=== PATIENT | female | born 1965 | race Caucasian/White ===

== ENCOUNTER 2017-09-14 09:04 | Emergency (ER) | payer BC ==
[2017-09-14 09:08] VITALS: BP 155/72; BMI 31.7
--- NOTE | 2017-09-14 09:31 | ED.ABDFE ---
HPI - Time seen Time seen: 11:48 (seen on arrival) - PCP Primary Care Physician: JASMINE - Complaint Chief Complaint:: PT C/O RLQ PAIN THAT RADIATES TO THE BACK.PT STATES THE PAIN STARTED ALL OF A SUDDEN THIS AM UPON AWAKENING. PT STATES SHE IS HAVING A BURNING SENSATION WHEN SHE AT THE END OF COIDING. PT ALSO STATES SHE THOUGHT THAT SHE MAY HAVE BEEN RUNNING FEVER SHE TOOK X2 ADVIL. SHE DOES ALSO C/O THAT SHE HAS BEEN DIZZY. - Nurses notes reviewed Nurses Notes Review: Yes - Source History Provided: Patient - Mode of arrival Mode of Arrival: Ambulatory - Timing Onset of Chief Complaint: 09/14/17 PMH - PMH Past Medical History: No (pt states 'borderline DM') Past Surgical History: Yes Surgical History: Hysterectomy - Family History History of Family Medical Conditions: No - Social History Does any household member use tobacco: No Alcohol Use: None Do you use any recreational Drugs:: No Lives With: Family Lives Where: Home - infectious screening In the last 2 months have you had wt loss of >10#?: NO Have you had fever, night sweats or hemotysis?: No Have you traveled outside the country in the last 6 months?: No Isolation: Standard ROS - Review of Systems Constitutional: Chills, Diaphoresis Eyes: No Symptoms Reported ENTM: No Symptoms Reported Respiratoy: No Symptoms Reported Cardiovascular: No Symptoms Reported Gastrointestinal/Abdominal: Abdominal Pain, Diarrhea, Nausea Genitourinary: Pain Neurological: No Symptoms Reported Musculoskeletal: No Symptoms Reported Integumentary: No Symptoms Reported Hematologic/Lymphatic: No Symptoms Reported Endocrine: No Symptoms Reported Psychiatric: No Symptoms Reported All Other Systems: Reviewed and Negative PE - Vital Signs Vitals: Temperature 97.7 F Pulse Rate 88 Respiratory Rate 18 Blood Pressure 155/72 O2 Sat by Pulse Oximetry 99 - General Limitations: No Limitations General Appearance: Alert, In No Apparent Distress - Head Head Exam: Normal Inspection - Eyes Eye exam: Normal Appearance - ENT ENT Exam: Normal Exam - Neck Neck Exam: Normal Inspection - Chest Chest Inspection: Normal Inspection - Respiratory Respiratory Exam: Normal Lung Sounds Bilat Respiratory Exam: Bilateral Clear to Auscultation - Cardiovascular Cardiovascular Exam: Regular Rate, Normal Rhythm, Normal Heart Sounds - Abdominal Exam Abdominal Exam: Soft, Tenderness. negative: Guarding, Rebound, Rigidity, Dimnished Bowel Sounds Abdominal Tenderness: RLQ, Mild - Rectal Rectal Exam: Deferred - Back Back Exam: negative: (R) CVA Tenderness, (L) CVA Tenderness - Extremeties Extremities Exam: Normal Inspection, Full ROM - Neurologic Neurological Exam: Alert, Oriented X3 - Psychiatric Psychiatric Exam: Normal Affect, Normal Mood - Skin Skin Exam: Warm, Dry ROR - Labs Reviewed Laboratory Results Reviewed?: Yes (hematuria, nl WBC) Result Diagrams: 09/14/17 10:10 09/14/17 10:10 Laboratory: WBC 8.1 X10^3/uL (3.6-10.0) 09/14/17 10:10 RBC 4.67 X10^6/uL (3.5-5.4) 09/14/17 10:10 Hgb 13.4 g/dL (12.0-16.0) 09/14/17 10:10 Hct 39.8 % (36.0-47.0) 09/14/17 10:10 MCV 85.2 fL (80.0-100.0) 09/14/17 10:10 MCH 28.8 pg (27.0-34.0) 09/14/17 10:10 MCHC 33.8 g/dL (33.0-35.0) 09/14/17 10:10 RDW 14.1 % (11.6-16.5) 09/14/17 10:10 Plt Count 274 X10^3/uL (150.0-450.0) 09/14/17 10:10 MPV 8.5 fL (7.4-11.0) 09/14/17 10:10 Neut % (Auto) 86.2 % (42.0-75.0) H 09/14/17 10:10 Lymph % (Auto) 10.2 % (21.0-51.0) L 09/14/17 10:10 [place] % (Auto) 2.4 % (0.0-13.0) 09/14/17 10:10 Eos % (Auto) 0.8 % (0.9-2.9) L 09/14/17 10:10 Baso % (Auto) 0.4 % (0.2-1.0) 09/14/17 10:10 Neut # (Auto) 7.0 x10^3/uL (2.2-4.8) H 09/14/17 10:10 Lymph # (Auto) 0.8 X10^3/uL (1.3-2.9) L 09/14/17 10:10 [place] # (Auto) 0.2 x10^3/uL (0.3-0.8) L 09/14/17 10:10 Eos # (Auto) 0.1 x10^3/uL (0.0-0.2) 09/14/17 10:10 Baso # (Auto) 0.0 X10^3/uL (0.0-0.1) 09/14/17 10:10 Absolute Nucleated RBC 0.1 /100WBC 09/14/17 10:10 Sodium 134 mmol/L (136-145) L 09/14/17 10:10 Corrected Sodium 139 mmol/L (136-145) 09/14/17 10:10 Potassium 4.0 mmol/L (3.5-5.1) 09/14/17 10:10 Chloride 100 mmol/L (98-107) 09/14/17 10:10 Carbon Dioxide 23.7 mmol/L (21-32) 09/14/17 10:10 BUN 15 mg/dL (7-18) 09/14/17 10:10 Creatinine 0.93 mg/dL (0.55-1.02) 09/14/17 10:10 Est GFR (MDRD) Af Amer > 60 (>60) 09/14/17 10:10 Est GFR (MDRD) Non-Af > 60 (>60) 09/14/17 10:10 Glucose 308 mg/dL (65-99) H 09/14/17 10:10 Calcium 8.5 mg/dL (8.5-10.1) 09/14/17 10:10 Corrected Calcium TNP 09/14/17 10:10 Total Bilirubin 0.90 mg/dL (0.2-1.0) 09/14/17 10:10 AST 15 Units/L (15-37) 09/14/17 10:10 ALT 30 Units/L (12-78) 09/14/17 10:10 Alkaline Phosphatase 101 Units/L (46-116) 09/14/17 10:10 Total Protein 7.7 g/dL (6.4-8.2) 09/14/17 10:10 Albumin 4.0 g/dL (3.4-5.0) 09/14/17 10:10 Globulin 3.7 g/dL (2.5-4.5) 09/14/17 10:10 Albumin/Globulin Ratio 1.1 Ratio (1.1-2.1) 09/14/17 10:10 Amylase 55 Units/L (25-115) 09/14/17 10:10 Lipase 148 Units/L (73-393) 09/14/17 10:10 Specimen Type Clean catch urine 09/14/17 10:13 Urine Color Yellow (YELLOW) 09/14/17 10:13 Urine Appearance Clear (CLEAR) 09/14/17 10:13 Urine pH 7.0 (5.0 - 8.0) 09/14/17 10:13 Ur Specific [place] 1.010 (1.000-1.030) 09/14/17 10:13 Urine Protein Negative (NEGATIVE) 09/14/17 10:13 Urine Glucose (UA) 4+ (NEGATIVE) 09/14/17 10:13 Urine Ketones 2+ (NEGATIVE) 09/14/17 10:13 Urine Occult Blood 4+ (NEGATIVE) 09/14/17 10:13 Urine Nitrite Negative (NEGATIVE) 09/14/17 10:13 Urine Bilirubin Negative (NEGATIVE) 09/14/17 10:13 Urine Urobilinogen Normal (NORMAL) 09/14/17 10:13 Ur Leukocyte Esterase Negative (NEGATIVE) 09/14/17 10:13 Urine RBC 20-30 /HPF (NONE SEEN) 09/14/17 10:13 Urine WBC 0-2 /HPF (NONE SEEN) 09/14/17 10:13 Ur Squamous Epith Cells Few /HPF (NEGATIVE) 09/14/17 10:13 Amorphous Sediment Trace /HPF (NEGATIVE) 09/14/17 10:13 Urine Bacteria Trace /HPF (NEGATIVE) 09/14/17 10:13 Ur Culture Indicated? No/not indicated 09/14/17 10:13 - XRAY XRAY Findings: CT stone search shows 2mm stoned passed, stone in bladder, nothing acute - Diagnosis Discharge Problem: Kidney stone on right side - Discharge Plan Disposition: 01 HOME, SELF-CARE Condition: Stable - Follow ups/Referrals Follow ups/Referrals: SANFORD FERRARO [Primary Care Provider] - 3 days - Instructions Instructions: Kidney Stones
[2017-09-14 10:18] LABS: BASOPHILS % (AUTO) 0.4 % (0.2-1.0); EOSINOPHILS # (AUTO) 0.1 x10^3/uL (0.0-0.2); EOSINOPHILS % (AUTO) 0.8 % (0.9-2.9); HEMATOCRIT 39.8 % (36.0-47.0); HEMOGLOBIN 13.4 g/dL (12.0-16.0); LYMPHOCYTES # (AUTO) 0.8 X10^3/uL (1.3-2.9); LYMPHOCYTES % (AUTO) 10.2 % (21.0-51.0); MEAN CORPUSCULAR HEMOGLOBIN 28.8 pg (27.0-34.0); MEAN CORPUSCULAR HGB CONC 33.8 g/dL (33.0-35.0); MEAN CORPUSCULAR VOLUME 85.2 fL (80.0-100.0); MEAN PLATELET VOLUME 8.5 fL (7.4-11.0); MONOCYTES # (AUTO) 0.2 x10^3/uL (0.3-0.8); MONOCYTES % (AUTO) 2.4 % (0.0-13.0); NEUTROPHILS % (AUTO) 86.2 % (42.0-75.0); PLATELET COUNT 274 X10^3/uL (150.0-450.0); RED BLOOD COUNT 4.67 X10^6/uL (3.5-5.4); RED CELL DISTRIBUTION WIDTH 14.1 % (11.6-16.5); WHITE BLOOD COUNT 8.1 X10^3/uL (3.6-10.0)
[2017-09-14 10:22] LABS: BILIRUBIN,URINE NEGATIVE (NEGATIVE); BLOOD/HEMOGLOBIN,URINE 4+ (NEGATIVE); GLUCOSE, URINE 4+ (NEGATIVE); KETONES,URINE 2+ (NEGATIVE); LEUKOCYTE ESTERASE ,URINE NEGATIVE (NEGATIVE); NITRITES,URINE NEGATIVE (NEGATIVE); PROTEIN,URINE NEGATIVE (NEGATIVE); UROBILINOGEN,URINE NORMAL (NORMAL)
[2017-09-14 10:34] LABS: ALANINE AMINOTRANSFERASE 30 Units/L (12-78); ALKALINE PHOSPHATASE 101 Units/L (46-116); AMYLASE 55 Units/L (25-115); ASPARTATE AMINO TRANSFERASE 15 Units/L (15-37); BLOOD UREA NITROGEN 15 mg/dL (7-18); CALCIUM 8.5 mg/dL (8.5-10.1); CARBON DIOXIDE 23.7 mmol/L (21-32); CHLORIDE 100 mmol/L (98-107); COR NA(FOR HYPERGLY) 139 mmol/L (136-145); CREATININE 0.93 mg/dL (0.55-1.02); LIPASE 148 Units/L (73-393); SODIUM 134 mmol/L (136-145); TOTAL PROTEIN 7.7 g/dL (6.4-8.2); eGFR BLACK RACES > 60 (>60); eGFR NON BLACK RACES > 60 (>60)
[2017-09-14 10:37] LABS: APPEARANCE,URINE CLEAR (CLEAR); COLOR,URINE YELLOW (YELLOW)
[2017-09-14 10:50] LABS: BACTERIA,URINE TRACE /HPF (NEGATIVE); RBC,URINE 20-30 /HPF (NONE SEEN); SQUAMOUS EPITHELIAL CELL,UR FEW /HPF (NEGATIVE)
[2017-09-14 10:51] LABS: AMORPHOUS SEDIMENT,UR TRACE /HPF (NEGATIVE)
--- NOTE | 2017-09-14 11:39 | CT ---
CT abdomen and pelvis without contrast Indication: Right flank pain, hematuria Comparison: None Technique: CT images of the abdomen and pelvis were obtained without contrast per protocol. Automatic exposure control was utilized. Findings: The lung bases are grossly clear. No acute skeletal abnormality. Evaluation of the abdominal pelvic viscera is limited without contrast. There is a subcentimeter roun ded hypodensity within the spleen on axial image 21; this cannot be definitively characterized, but i s likely a benign finding such as a cyst or hemangioma. Within noncontrast limitations, the liver, ga llbladder, stomach, duodenum, pancreas, and adrenals are unremarkable. There is minimal right-sided h ydroureteronephrosis. No ureteral stone is identified, although there is a 2 mm calcification layerin g within the dependent urinary bladder (axial image 72). A few punctate right renal collecting system stones are noted. No evidence for left-sided nephrolithiasis or hydronephrosis. No significant thickening or dilatation of the lower GI tract. The appendix is normal. The uterus is absent. The ovaries are noted. The rectum is unremarkable. No urinary bladder thickening. No free flu id or adenopathy. Impression: 1. Findings of recently passed right ureteral stone, with minimal right-sided hydroureteronephrosis a nd a 2 mm calcification layering within the bladder. 2. Punctate nonobstructing right nephrolithiasis Reported By:
== END 2017-09-14 11:58 | disposition home or self-care (01) ==
LOC: ER 09:14
DX: N20.0 Calculus of kidney (principal); R10.31 Right lower quadrant pain
CPT/HCPCS: 36415; 74176; 80053; 81001; 82150; 83690; 85025; 96365; 99282; 99283; A4216; A4222